=== PATIENT | female | born 1945 | race Caucasian/White ===

== ENCOUNTER 2019-08-21 12:42 | Inpatient (IN) | payer MEDICARE, OTHER ==
[~2019-08-21] VITALS: Ht 165.1 cm; Wt 78.0 kg
--- NOTE | 2019-08-21 13:14 | NUR ---
Provided patient with food
[2019-08-21 13:19] LABS: BASOPHILS % (AUTO) 0.6 % (0.0-2.0); HEMATOCRIT 40.2 % (31.2-41.9); HEMOGLOBIN 13.5 g/dL (10.9-14.3); LYMPHOCYTES # (AUTO) 0.9 K/uL (20.0-40.0); LYMPHOCYTES % (AUTO) 10.1 % (20.5-51.5); MEAN CORPUSCULAR HEMOGLOBIN 33.4 uug (24.7-32.8); MEAN CORPUSCULAR HGB CONC 34 g/dL (32.3-35.6); MEAN CORPUSCULAR VOLUME 99.8 fL (75.5-95.3); MONOCYTES # (AUTO) 0.8 K/uL (2.0-10.0); MONOCYTES % (AUTO) 8.7 % (0.0-11.0); NEUTROPHILS % (AUTO) 80.6 % (38.5-71.5); PLATELET COUNT (AUTO) 246 K/uL (179-408); RED BLOOD CELL COUNT(AUTO) 4.03 MIL/uL (3.63-4.92); WHITE BLOOD COUNT (AUTO) 8.7 K/uL (3.8-11.8)
[2019-08-21 13:23] LABS: CARBON DIOXIDE 30 mmol/L (21-32); CHLORIDE 101 mmol/L (98-107); CREATININE 1.5 mg/dL (0.6-1.3); GLUCOSE 441 mg/dL (74-106); POTASSIUM 5.2 mmol/L (3.5-5.1); UREA NITROGEN, BLOOD 36 mg/dL (7-18)
[2019-08-21 13:29] LABS: ALANINE AMINOTRANSFERASE 47 U/L (14-59); ALKALINE PHOSPHATASE 128 U/L (50-136); ASPARTATE AMINOTRANSFERASE 21 U/L (15-37); BILIRUBIN,DIRECT 0.2 mg/dL (0.0-0.2); BILIRUBIN,TOTAL 0.9 mg/dL (0.2-1.0); TOTAL PROTEIN, SERUM 7.1 g/dL (6.4-8.2)
[2019-08-21] MEDS ORDERED: IV NORMAL SALINE 1000 ML BAG IV ONE (13:30)
[2019-08-21 13:31] LABS: ACETAMINOPHEN < 2.0 ug/mL (10-30)
[2019-08-21 13:56] LABS: *BILIRUBIN,URIN NEGATIVE (NEGATIVE); *BLOOD, URINE 1+ (NEGATIVE); *CLARITY,URINE CLOUDY (CLEAR); *COLOR,URINE YELLOW (YELLOW); *KETONES,URINE NEGATIVE (NEGATIVE); *UROBILINOGEN,URINE 0.2 E.U./dl (NORMAL); LEUKOCYTE ESTERASE ,URINE 1+ (NEGATIVE); NITRITE, URINE NEGATIVE (NEGATIVE); PH,URINE 5.5 (5.0-8.0); UGLUCOSE 3+ (NEGATIVE)
[2019-08-21 13:58] LABS: BACTERIA,URINE MANY /HPF (NONE SEEN); SQUAMOUS EPITHELIAL CELL,UR FEW /HPF (NONE SEEN); WBC,URINE 80-100 /HPF (0-3)
[2019-08-21] MEDS ORDERED: OLAN10TA3 PO (14:02)
[2019-08-21] MEDS ORDERED: INSU100V28 SQ (14:02)
[2019-08-21] MEDS ORDERED: ASPI-605 PO (14:02)
[2019-08-21] MEDS ORDERED: ACET325T53 PO (14:02)
[2019-08-21] MEDS ORDERED: MAGN400O6 PO (14:02)
[2019-08-21] MEDS ORDERED: IBUP-1955 PO (14:02)
[2019-08-21] MEDS ORDERED: METF-440 PO (14:02)
[2019-08-21] MEDS ORDERED: OMEP1CAP4 PO (14:02)
--- NOTE | 2019-08-21 14:25 | NUR ---
Strategic Planning Specialist from Dr. Medina's office stated they are out to lunch and cannot answer calls
[2019-08-21] MEDS ORDERED: INSULIN REGULAR, HUMAN 300 UNIT/3 ML VIAL SQ ONE (15:00)
[2019-08-21] MEDS ORDERED: CEFTRIAXONE 2 G in IV DEXTROSE 5% 100 ML IV ONE (15:00)
[2019-08-21 15:24] LABS: ETHANOL < 3 MG/DL (0-0)
[2019-08-21] MEDS ORDERED: INSULIN REGULAR, HUMAN 300 UNIT/3 ML VIAL ONE (15:26)
[2019-08-21 15:35] LABS: *AMPHETAMINE, URINE NEGATIVE (NEGATIVE); *BARBITURATE, URINE NEGATIVE (NEGATIVE); *CANNABINOID, URINE NEGATIVE (NEGATIVE); *COCCAINE, URINE NEGATIVE (NEGATIVE); *PHENCYCLIDINE SCREEN,URINE NEGATIVE (NEGATIVE)
[2019-08-21 15:36] LABS: *OPIATE, URINE NEGATIVE (NEGATIVE)
--- NOTE | 2019-08-21 16:28 | NUR ---
Per Nursing sandblaster supervisor, [facility] patients need to be moved around upstairs on the inpatient floor. He stated he will update when the patient is able to be admitted.
--- NOTE | 2019-08-21 16:39 | NUR ---
Patient in bed at lowest position, sr upx2, patient asleep with eyes closed NAD
--- NOTE | 2019-08-21 18:17 | NUR ---
Report given to January, RN
--- NOTE | 2019-08-21 18:45 | NUR ---
RECEIVED PATIENT FROM ER ADMITTED IN THE MEDSURG UNIT, VIA STRETCHER NO C/O PAIN AND NO S/S OF ACUTE DISTRESS NOTED. SAFETY AND COMFORT PROVIDED AND PATIENT WITH 1:1 SITTER ON 5150 HOLD. WILL CONTINUE TO MONITOR.
[2019-08-21 19:00] VITALS: BP 138/77
--- NOTE | 2019-08-21 19:00 | NUR ---
Patient transported to [place] in stable condition.
--- NOTE | 2019-08-21 19:30 | NUR ---
New admission report received from AM nurse. Patient is received in bed. Asleep and resting well. 1:1 sitter at bedside, on 72 hour hold until 08/25/19 at 11:02 AM. Admission process continued from AM nurse. Pending admission orders at this time. Initial physical assessment done, no issues noted. Not in any active distress. Currently on Medsurg. Will continue to monitor.
[2019-08-21 20:10] VITALS: BP 136/64
[2019-08-21] MEDS ORDERED: ACETAMINOPHEN 325 MG TABLET PO PRN (20:15)
[2019-08-21] MEDS ORDERED: HYDROCODONE/APAP 5-325MG TABLET PO PRN (20:15)
[2019-08-21] MEDS ORDERED: ONDANSETRON 4 MG/2 ML VIAL IV PRN (20:15)
[2019-08-21] MEDS ORDERED: DEXTROSE 50% 50 ML DISP.SYRIN IV PRN (20:30)
[2019-08-21] MEDS ORDERED: DOCUSATE SODIUM 250 MG CAPSULE PO SCH (21:00)
--- NOTE | 2019-08-21 21:00 | NUR ---
Dr. Barger came and assessed patient, reviewed EKG results and other lab works as well. Pt admitted to Tele. New orders noted and started to carry out at this time. Sinus arrythmia on TELE at 75. Still with no behavioral episodes at this time, and no acute distress.
[2019-08-22] VITALS: BP 147/69
[2019-08-22] MEDS: DOCUSATE SODIUM 100 MG CAPSULE PO SCH ×2 (00:26→20:41)
[2019-08-22] MEDS: glipiZIDE 10 MG TABLET PO SCH ×3 (00:26→16:17)
[2019-08-22] MEDS: BLOOD SUGAR DIAGNOSTIC 1 EACH STRIP VI SCH ×5 (00:26→20:42)
[2019-08-22] MEDS: OLANZAPINE 5 MG TABLET PO SCH ×2 (00:26→20:41)
[2019-08-22] MEDS: IV 1/2NS 1000 ML 1,000 ML IV PRN ×2 (00:30→16:04)
--- NOTE | 2019-08-22 00:30 | NUR ---
All admission orders noted and carried out at this time. BS: 262, 6 units og regular insulin given. Patient had snacks during bedtime and no s/sx of hyper/hypoglycemia. Pt actually noted to be ambulatory with assist, and able to go to the bathroom x1 BM, x1 Urine. No noted dysuria or fevers at this time. Sinus arrhythmia on tele still at 75. Will continue to monitor.
[2019-08-22] MEDS: INSULIN REGULAR, HUMAN 300 UNITS/3 ML VIAL SQ PRN ×2 (00:49→20:45)
[2019-08-22 04:59] VITALS: BP 123/63
[2019-08-22 06:21] LABS: BASOPHILS % (AUTO) 0.1 % (0.0-2.0); HEMOGLOBIN 12.1 g/dL (10.9-14.3); LYMPHOCYTES # (AUTO) 1.3 K/uL (20.0-40.0); LYMPHOCYTES % (AUTO) 20.1 % (20.5-51.5); MEAN CORPUSCULAR HEMOGLOBIN 33.5 uug (24.7-32.8); MEAN CORPUSCULAR HGB CONC 34 g/dL (32.3-35.6); MEAN CORPUSCULAR VOLUME 99.5 fL (75.5-95.3); MONOCYTES # (AUTO) 0.7 K/uL (2.0-10.0); MONOCYTES % (AUTO) 10.9 % (0.0-11.0); NEUTROPHILS # (AUTO) 4.3 K/uL (1.8-8.9); NEUTROPHILS % (AUTO) 68.9 % (38.5-71.5); PLATELET COUNT (AUTO) 216 K/uL (179-408); RED BLOOD CELL COUNT(AUTO) 3.61 MIL/uL (3.63-4.92); WHITE BLOOD COUNT (AUTO) 6.3 K/uL (3.8-11.8)
--- NOTE | 2019-08-22 06:29 | NUR ---
Patient slept well through the night, able to sleep 8-9 hours. Easily arousable during ADLs. No behavioral episodes, 1:1 sitter remained at bedside. Patient kept clean, dry and safe. Remains on Sinus Arrhythmia @ 71. Will continue to monitor and endorse accordingly.
[2019-08-22] MEDS: PANTOPRAZOLE SODIUM 40 MG TABLET.DR PO SCH (06:36)
[2019-08-22 06:46] LABS: THYROID STIMULATING HORMONE 0.358 mIU/mL (0.358-3.740)
[2019-08-22 06:49] LABS: BILIRUBIN,TOTAL 0.7 mg/dL (0.2-1.0); CREATININE 0.9 mg/dL (0.6-1.3); MAGNESIUM 1.8 mg/dL (1.8-2.4); PHOSPHOROUS 4.1 mg/dL (2.5-4.9); POTASSIUM 4.2 mmol/L (3.5-5.1)
[2019-08-22 08:00] VITALS: BP 136/80
--- NOTE | 2019-08-22 08:00 | NUR ---
RESTING IN BED WITH NO SS OF AGITATION . NO SOB OR C.O PAIN 1:1 SITTER AT BEDSIDE
[2019-08-22] MEDS: INSULIN REGULAR, HUMAN 300 UNIT/3 ML VIAL SQ PRN ×3 (08:06→16:15)
[2019-08-22] MEDS: ASPIRIN EC 81 MG TABLET.DR PO SCH (08:43)
[2019-08-22 11:24] VITALS: BP 123/59
--- NOTE | 2019-08-22 12:00 | NUR ---
SEEN BY SPEECH FOR EVAL RECOMMEND CHOPPED DIET TOLERATED
--- NOTE | 2019-08-22 15:35 | NUR ---
CONTINUE WITH 1:1 SITTER FOR GRAVELY DISABLED OR DANGER TO SELF. ROCEPHIN FOR UTI, NO ALLERGY REACTION NOTED
[2019-08-22 15:54] VITALS: BP 136/62
[2019-08-22] MEDS: CEFTRIAXONE 1 G in IV DEXTROSE 5% 50 ML IV SCH (16:03)
--- NOTE | 2019-08-22 19:30 | NUR ---
Received pt in no acute distress. Sitter at bedside for safety. Iv intact. Safety and comfort provided. Will continue to monitor.
[2019-08-22 20:20] VITALS: BP 131/74
--- NOTE | 2019-08-22 22:12 | NUR ---
hands of report to Tuyet day. Pt in no acute distress. Iv intact. Sitter at bedside. Safety and comfort provided.
--- NOTE | 2019-08-23 | NUR ---
continues to be with 1:1 sitter,on hold, paranoid, slept on and off,needs attended to.no diabetic crisis noted.kept warm and comfortable.
[2019-08-23 04:00] VITALS: BP 132/63
[2019-08-23 07:01] LABS: CREATININE 0.7 mg/dL (0.6-1.3); MAGNESIUM 1.7 mg/dL (1.8-2.4); PHOSPHOROUS 3.3 mg/dL (2.5-4.9); POTASSIUM 4.5 mmol/L (3.5-5.1)
[2019-08-23] MEDS: BLOOD SUGAR DIAGNOSTIC 1 EACH STRIP VI SCH ×4 (07:01→20:29)
[2019-08-23 07:06] LABS: BASOPHILS # (AUTO) 0.1 K/uL (0.0-8.0); BASOPHILS % (AUTO) 0.7 % (0.0-2.0); EOSINOPHILS # (AUTO) 0.1 K/uL (0.0-0.7); EOSINOPHILS % (AUTO) 0.8 % (0.0-7.0); HEMATOCRIT 35.6 % (31.2-41.9); HEMOGLOBIN 12.4 g/dL (10.9-14.3); LYMPHOCYTES # (AUTO) 2.3 K/uL (20.0-40.0); LYMPHOCYTES % (AUTO) 27.2 % (20.5-51.5); MEAN CORPUSCULAR HEMOGLOBIN 34.4 uug (24.7-32.8); MEAN CORPUSCULAR HGB CONC 35 g/dL (32.3-35.6); MEAN CORPUSCULAR VOLUME 98.6 fL (75.5-95.3); MONOCYTES # (AUTO) 0.9 K/uL (2.0-10.0); MONOCYTES % (AUTO) 10.1 % (0.0-11.0); NEUTROPHILS # (AUTO) 5.2 K/uL (1.8-8.9); NEUTROPHILS % (AUTO) 61.2 % (38.5-71.5); PLATELET COUNT (AUTO) 222 K/uL (179-408); RED BLOOD CELL COUNT(AUTO) 3.61 MIL/uL (3.63-4.92); WHITE BLOOD COUNT (AUTO) 8.5 K/uL (3.8-11.8)
[2019-08-23 08:00] VITALS: BP 141/70
--- NOTE | 2019-08-23 08:00 | NUR ---
RESTING COMFORTABLY, CONTINUE 1:1 SITTER. NO SS OF PAIN OR DISTRESS PACING ON MONITOR
[2019-08-23] MEDS: ASPIRIN EC 81 MG TABLET.DR PO SCH (08:01)
[2019-08-23] MEDS: glipiZIDE 10 MG TABLET PO SCH ×2 (08:01→16:45)
[2019-08-23] MEDS: PANTOPRAZOLE SODIUM 40 MG TABLET.DR PO SCH (08:01)
[2019-08-23] MEDS: INSULIN REGULAR, HUMAN 300 UNIT/3 ML VIAL SQ PRN ×3 (08:03→16:47)
[2019-08-23] MEDS: IV 1/2NS 1000 ML 1,000 ML IV PRN ×2 (08:06→23:11)
[2019-08-23] MEDS ORDERED: MAGNESIUM OXIDE 400 MG TABLET PO ONE (08:15)
--- NOTE | 2019-08-23 10:24 | NUR ---
AWAKE ALERT AND PLEASANT, ABLE TO FOLLOW SIMPLE INSTRUCTION, NO SIGNS OF AGITATION OR AGGRESSIVENESS, TAKES MEDICATION WILLINGLY, APPETITE GOOD. IN ROOM MOST OF THE SHIFT. SR ON MONITOR
[2019-08-23 11:15] VITALS: BP 148/61
[2019-08-23 15:22] VITALS: BP 150/61
[2019-08-23] MEDS: CEFTRIAXONE 1 G in IV DEXTROSE 5% 50 ML IV SCH (15:25)
--- NOTE | 2019-08-23 18:08 | NUR ---
CONTINUE PLAN OF CARE, IV ANTIBIOTIC, PHYSICAL THERAPY. PLAN DC TO SNF. SEE MATERIAL WORKER NOTES. SR ON MONITOR
--- NOTE | 2019-08-23 19:30 | NUR ---
Received patient awake and alert in bed for 1:1 sitter for safety. A/Ox1. no acute distress noted. No s/s of pain or SOB. Vitals WNL. IVF running on the left hand no s/s of infection or infiltration noted. Safety measures initiated. Bed is low and locked, will continue to monitor.
[2019-08-23 20:12] VITALS: BP 155/75
[2019-08-23] MEDS: INSULIN REGULAR, HUMAN 300 UNITS/3 ML VIAL SQ PRN (20:26)
[2019-08-23] MEDS: OLANZAPINE 5 MG TABLET PO SCH (20:29)
[2019-08-23] MEDS: DOCUSATE SODIUM 100 MG CAPSULE PO SCH (20:29)
[2019-08-23] MEDS: CEphaleXIN 500 MG CAPSULE PO SCH (21:09)
[2019-08-23 23:41] VITALS: BP 144/58
[2019-08-24 04:00] VITALS: BP 133/62
[2019-08-24] MEDS: CEphaleXIN 500 MG CAPSULE PO SCH ×3 (06:13→21:07)
[2019-08-24] MEDS: PANTOPRAZOLE SODIUM 40 MG TABLET.DR PO SCH (06:14)
[2019-08-24] MEDS: BLOOD SUGAR DIAGNOSTIC 1 EACH STRIP VI SCH ×4 (06:31→21:24)
--- NOTE | 2019-08-24 06:50 | NUR ---
Patient slept well, no distress noted. 1:1 sitter at bedside. No s/s of pain or SOB. IVF running on the left hand no s/s of infection or infiltration noted. Safety measures given. Will endorse to next shift.
[2019-08-24 08:21] VITALS: BP 146/70
[2019-08-24] MEDS: ASPIRIN EC 81 MG TABLET.DR PO SCH (08:56)
[2019-08-24] MEDS: INSULIN REGULAR, HUMAN 300 UNIT/3 ML VIAL SQ PRN ×3 (08:57→16:51)
[2019-08-24] MEDS: glipiZIDE 10 MG TABLET PO SCH ×2 (10:05→16:50)
[2019-08-24] MEDS ORDERED: ALBUTEROL SULFATE 1.25 MG/3 ML NEBU NEB PRN (10:45)
[2019-08-24] MEDS ORDERED: IV NORMAL SALINE 250 ML IV ONE (11:09)
[2019-08-24] MEDS ORDERED: IOHEXOL 300MG/ML 100 ML INFUS..BTL ONE (11:09)
[2019-08-24] MEDS ORDERED: SWABABLE VALVE TRANSFER SET EA MC ONE (11:09)
--- NOTE | 2019-08-24 11:35 | NUR ---
1135 Patient transported via wheelchair for CT with contrast, consent signed and in chart.
[2019-08-24] MEDS: IV 1/2NS 1000 ML 1,000 ML IV PRN (12:45)
[2019-08-24 15:00] VITALS: BP 155/63
[2019-08-24] MEDS ORDERED: DOCU100C36 PO (16:35)
[2019-08-24] MEDS ORDERED: GLIP10TA11 PO (16:35)
[2019-08-24] MEDS ORDERED: REPA1TAB PO (16:35)
[2019-08-24] MEDS ORDERED: MULT1TAB73 PO (16:35)
[2019-08-24] MEDS ORDERED: OLAN5TAB3 PO (16:35)
[2019-08-24] MEDS ORDERED: IBUP-1953 PO (16:35)
[2019-08-24] MEDS ORDERED: ACET325T53 PO (16:35)
[2019-08-24] MEDS ORDERED: DEXT50DI8 IV (16:35)
[2019-08-24] MEDS ORDERED: ACID1TAB4 PO (16:35)
[2019-08-24] MEDS ORDERED: CEPH500C2 PO (16:35)
[2019-08-24] MEDS ORDERED: HYDR-3972 PO (16:35)
[2019-08-24] MEDS ORDERED: Blood Sugar Diagnostic VI (16:35)
[2019-08-24] MEDS ORDERED: INSU100V28 SQ ×2 (16:35)
[2019-08-24] MEDS ORDERED: PANT40TA2 PO (16:35)
--- NOTE | 2019-08-24 16:48 | NUR ---
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 No isolation.
--- NOTE | 2019-08-24 17:29 | NUR ---
Safety precautions in place, psych hold is up. Psych eval done. Patient alert and oriented, although mumbling with speech so communication is written. Continues on IV fluids and keflex antibiotic. Had CT with contrast today, refer to findings. Seen by PT, okay to ambulate with assistance from nursing staff patient is steady, refer to note. End of shift chart check done, will endorse care to oncoming shift. Started on bactroban for positive MRSA both nares. Addendum: 08/24/19 at 1828 by TRISHA VIEYRA RN Report called to Nic BARRIENTOS Sup at [facility].
--- NOTE | 2019-08-24 19:45 | NUR ---
PATIENT AWAKE IN BED. WAITING FOR AMBULANCE PICK-UP. PATIENT IS A/O X3. VSS. DENIES PAIN. BED ALARM ON. ALL NEEDS ATTENDED. WILL CONTINUE TO MONITOR AND ASSESS.
[2019-08-24 20:33] VITALS: BP 155/75
--- NOTE | 2019-08-24 20:45 | NUR ---
AMBULANCE AT BEDSIDE TO PROVISIONING SPECIALIST PATIENT. BLOOD PRESSURE ON LEFT ARM IS 176/88 AND RIGHT ARM 184/91. CALLED OUT TO SONI-AUTOMATIC VULCANIZING OPERATOR TO INFORM HIM THAT PATIENT WILL NOT BE ABLE TO LEAVE. RECEIVED NEW ORDERS.
[2019-08-24] MEDS ORDERED: CLONIDINE HCL 0.2 MG TABLET PO STA (20:56)
[2019-08-24] MEDS ORDERED: OLANZAPINE 5 MG TABLET PO SCH (21:00)
[2019-08-24] MEDS ORDERED: MUPIROCIN 2% OINT 22 GM TUBE NS SCH (21:00)
--- NOTE | 2019-08-24 21:06 | NUR ---
PATIENT GIVEN CLONIDINE 0.2MG PO FOR ELEVATED BP. WILL CONTINUE TO MONITOR.
[2019-08-24] MEDS: DOCUSATE SODIUM 100 MG CAPSULE PO SCH (21:07)
[2019-08-24] MEDS: INSULIN REGULAR, HUMAN 300 UNITS/3 ML VIAL SQ PRN (21:26)
--- NOTE | 2019-08-24 22:35 | NUR ---
RECHECKED BP 159/70. CALLED OUT TO SIMONE FOR FURTHER ORDERS.
[2019-08-24 22:55] VITALS: BP 159/70
--- NOTE | 2019-08-24 22:55 | NUR ---
PATIENT GIVEN HYDRALAZINE 25MH PO X1. WILL CONTINUE TO MONITOR. [facility] CALLED AND NOTIFIED THAT PATIENT WILL BE TRANSFERRED BACK LATE.
[2019-08-24] MEDS ORDERED: hydrALAZINE HCL 25 MG TABLET PO ONE (23:00)
--- NOTE | 2019-08-24 23:53 | NUR ---
RECHECKED PATIENTS BLOOD PRESSURE 137/71. CALLED FOR AMBULANCE WHALE TRAINER. AMBULANCE IS AVAILABLE BETWEEN 0130-0200AM. FEED INSPECTION SUPERVISOR. PATIENT NOTIFIED AND VERBALIZED UNDERSTANDING.
--- NOTE | 2019-08-25 01:40 | NUR ---
AMBULANCE AT BEDSIDE TO COLLEGE BASKETBALL COACH PATIENT AND TRANSFER BACK TO [facility]. VSS. ALL NEEDS ATTENDED. CALLED [facility] TO INFORM PATIENT IS ON THE WAY BACK TO FACILITY.
--- NOTE | 2019-08-25 01:50 | NUR ---
PATIENT LEFT FACILITY IN STABLE CONDITION.
== END 2019-08-25 01:50 | DRG 871 ==
LOC: ER 12:44 → TELE3 18:21 → MEDSURG3 19:52 → TELE3 20:33 → MEDSURG3 08-24 10:47
PROVIDERS: ADMIT Internal Medicine; ATTEND Internal Medicine
DX: A41.9 Sepsis, unspecified organism (principal); G92 Toxic encephalopathy; N17.0 Acute kidney failure with tubular necrosis; N39.0 Urinary tract infection, site not specified; D68.59 Other primary thrombophilia; J90 Pleural effusion, not elsewhere classified; R47.01 Aphasia; E11.65 Type 2 diabetes mellitus with hyperglycemia; R65.20 Severe sepsis without septic shock; Z79.4 Long term (current) use of insulin; H91.90 Unspecified hearing loss, unspecified ear; Z86.718 Personal history of other venous thrombosis and embolism; Z79.82 Long term (current) use of aspirin; M48.14 Ankylosing hyperostosis [Forestier], thoracic region; E78.5 Hyperlipidemia, unspecified; B96.20 Unspecified Escherichia coli [E. coli] as the cause of diseases classified elsewhere; Z22.322 Carrier or suspected carrier of Methicillin resistant Staphylococcus aureus; Z91.14 Patient's other noncompliance with medication regimen; F31.9 Bipolar disorder, unspecified; F41.9 Anxiety disorder, unspecified; Z87.891 Personal history of nicotine dependence; Z74.09 Other reduced mobility; I11.9 Hypertensive heart disease without heart failure; I25.10 Atherosclerotic heart disease of native coronary artery without angina pectoris; J44.9 Chronic obstructive pulmonary disease, unspecified; E66.9 Obesity, unspecified; Z68.28 Body mass index [BMI] 28.0-28.9, adult; H91.3 Deaf nonspeaking, not elsewhere classified; E87.5 Hyperkalemia; J98.4 Other disorders of lung; D75.89 Other specified diseases of blood and blood-forming organs
CPT/HCPCS: 36415; 70030-TC; 71045; 71260; 80307; 83735; 84100; 84443; 85025; 86803; 87077; 87086; 87806; 93005; A4663; G0378; G0480; G0480-TC; J0696; J1815; J3490; J7030; J7050; J7060; Q9967